=== PATIENT | female | born 1960 | race Caucasian/White ===

== ENCOUNTER 2019-07-13 10:32 | Day surgery (SDC) | payer BC, OTHER ==
[~2019-07-13 10:32] MED LIST: Betamethasone Acetate/Betamethasone Sod Phosphate 30 MG/5 ML MDV EPIDUR ONE; Iopamidol 200-M 10 ML vial ITHECAL ONE; Lidocaine 2% 5 ML SDV INJECT ONE; Ropivacaine 0.5% 5 MG/ML 30 ML SDV INJECT ONE
--- NOTE | 2019-07-13 19:17 | OR ---
SURGEON: Lisa Pickett D.O. DATE OF PROCEDURE: 07/13/2019 PRIMARY SURGEON: Lisa Pickett D.O. AEROPLANE PILOT: OR staff present: 1. Candie Silvestre RN. 2. Papo Thorne RN. 3. Jasmine Glover RT. WOUND CLASS: I. PREOPERATIVE DIAGNOSES: 1. L3-5, L5-S1 lumbar degenerative disk disease. 2. Lumbar disk protrusions and spinal stenosis with right lower extremity radiculopathy. PROCEDURE PERFORMED: 1. Right transforaminal epidural steroid injection at S1. 2. Fluoroscopic guidance for needle placement. 3. Local with oral Valium for sedation. SCREENING QUESTIONS: The patient answered "no" to all of the following questions: 1. Are you allergic to iodine, Betadine or latex? 2. Do you have a bleeding disorder? 3. Do you have any joint replacements, heart valve replacements, or a pacemaker? 4. Are you allergic to anti-inflammatories or blood thinners? 5. Do you have any current local or systemic infections? The patient's other symptoms to be treated include numbness, paresthesia, dysesthesia or hypoesthesia referred into the left lower extremity or any weakness in the involved myotome. This procedure is being performed in accordance with national guidelines as written by the [employer] (FELISHA). DESCRIPTION OF PROCEDURE: The patient had the procedure thoroughly explained including risks, benefits and alternatives. Consent was signed in my clinic indicating understanding and willingness to proceed. The patient presented to [facility] where the patient was escorted to the dressing room to disrobe and change into a hospital gown. Preoperative vital signs were taken and stable. The patient reported that Valium was taken prior to the procedure. The patient was brought to the procedure room and placed in the prone position on the table. A pillow was placed under the abdomen in order to flatten the lumbar lordosis. The back was prepped with ChloraPrep and sterilely draped. All personnel in the operating room were dressed in appropriate attire including surgical scrubs, head and shoe covers. This was to ensure sterility while in the treatment room. During the time fluoroscopy was in use, all personnel in the operating room wore lead nava with thyroid collars. Sterile technique was used during the procedure. The fluoroscope was placed for the S1 transforaminal epidural steroid injection. There was no sign of infection at the skin site for needle insertion. The skin was anesthetized with 2% lidocaine with a 27 gauge 1-1/2 inch needle. Then a 22 gauge 3-1/2 inch spinal needle, advanced to the S1. Under direct fluoroscopic guidance needle position was verified in three views; AP, oblique and lateral, with 0.2 cubic centimeters increments of Isovue-200 dye. No intravascular flow pattern was observed under live fluoroscopy. Then 12 milligrams of Celestone was slowly injected after negative aspiration of heme, cerebrospinal fluid and no paresthesias were noted. The needle was cleared prior to removal from the skin. No adverse reactions were noted. The patient was brought to the recovery room awake and in good condition by my staff. The patient was monitored and discharge instructions were given after a brief stay in the recovery area. Both oral and written discharge and follow up instructions were given. The patient will follow up in the clinic in 3-4 weeks post procedure to evaluate the efficacy. The patient verbalized understanding including understanding of those signs and symptoms that would require emergency care and knows how to contact the office if there are any problems or questions in the meantime. PREOPERATIVE PAIN: 5+/10. POSTOPERATIVE PAIN: 2/10. FOLLOWUP: Follow up in the Pain Clinic in 4 weeks. LEVI / CARMEN /[id number] NAKIA
== END 2019-07-13 13:20 | disposition home or self-care (01) ==
LOC: MW.SDS 10:32
PROVIDERS: ATTEND Anesthesiology
DX: M51.37 Other intervertebral disc degeneration, lumbosacral region (principal); M51.16 Intervertebral disc disorders with radiculopathy, lumbar region; M48.061 Spinal stenosis, lumbar region without neurogenic claudication
CPT/HCPCS: 64483; J0702; 62323

== ENCOUNTER 2019-10-10 10:40 | Emergency (ER) | payer BC, OTHER ==
[2019-10-10] MEDS ORDERED: diphenhydrAMINE 50 MG/ML SDV IVPUSH ONE (11:49)
[2019-10-10] MEDS ORDERED: Sodium Chloride 0.9% 1,000 ML IV SCH (12:00)
--- NOTE | 2019-10-10 12:02 | EDM.PDOC ---
ED [facility] GENERAL MEDICAL PROBLEM - General Chief Complaint: Chest Pain Stated Complaint: ITCHING/CHESTPAIN Time Seen by Provider: 10/10/19 11:59 Source of Information: Reports: Patient History Limitations: Reports: No Limitations - History of Present Illness INITIAL COMMENTS - FREE TEXT/NARRATIVE: Patient is a 58-year-old female with a past medical history of smoking as well as a recent back surgery approximately 2 weeks ago presenting with a chief complaint of chest pain. The patient's chest pain started on Wednesday while at rest. The chest pain is been intermittently occurring and not exacerbated by any particular thing. Chest pain is located substernal with radiation to bilateral chest into the back. Chest pain lasts about 5 to 10 minutes before resolving spontaneously. Patient has no prior history of chest pain. Patient has no history of DVT or PE. Patient denies any calf swelling or pain. Patient denies hemoptysis. Pmhx: None Pshx: None Family Hx: Both parents from an [place] before the age of 65 Smoking history? Yes, daily Etoh use? none Drug use? none In addition to that documented in the HPI above, the additional ROS was obtained : Constitutional: Denies fevers or chills Eyes: Denies vision changes ENMT: Denies sore throat CV: Per HPI Resp: Denies SOB GI: Denies vomiting or diarrhea : Denies painful urination MSK: Denies recent trauma Skin: Denies new rashes Neuro: Denies new numbness or tingling or weakness Endocrine: Denies unexpected weight loss Heme: Denies bleeding disorders I have reviewed the triage vital signs Const: Well nourished, well developed, appears stated age Eyes: PERRL, no conjunctival injection HENT: NCAT, Neck supple without meningismus CV: RRR, Warm, well-perfused extremities RESP: CTAB, Unlabored respiratory effort GI: soft, non-tender, non-distended, no masses MSK: No gross deformities appreciated Skin: Warm, dry. No rashes Neuro: Alert, ms sql server developer II-XII grossly intact. Sensation and motor function of extremities grossly intact. Psych: Appropriate mood and affect Assessment and plan: 58-year-old female with chief complaint of chest pain and itchiness. Patient's chest pain is low suspicion for acute coronary syndrome. Patient's EKG did not demonstrate any ischemic changes. Patient's initial troponin was negative and therefore heart score was given a 3. Patient also had CT angiogram done to rule out pulmonary embolism in the setting of recent surgery however this was negative. Patient feels well does not have any complaints at this time other than itchiness to the skin. Patient also has no evidence of acute allergic reaction and therefore will be discharged home with outpatient follow-up.. - Related Data Allergies Allergy/AdvReac Type Severity Reaction Status Date / Time bupropion HCl Allergy Unknown Hives Verified 06/04/14 06:39 [From Wellbutrin] latex Allergy Unknown Itching Verified 06/04/14 06:39 Latex, Natural Rubber Allergy Rash Verified 10/12/15 20:25 Home Meds: Home Meds Ibuprofen 200 mg PO ASDIRECTED PRN 05/31/14 [History] Hydrocodone/Acetaminophen [Hydrocodon-Acetaminoph 2.5-325] 10/10/19 [History] Pregabalin [Lyrica] 10/10/19 [History] Sertraline [Zoloft] 25 mg PO DAILY 10/10/19 [History] methocarbamoL [Robaxin] 10/10/19 [History] traZODone HCl [Trazodone HCl] 10/10/19 [History] Past Medical History HEENT History: Reports: Impaired Vision Other HEENT History: wears contacts Cardiovascular History: Reports: None Respiratory History: Reports: None Gastrointestinal History: Reports: Diverticulosis Other Gastrointestinal History: states hx of diverticulitis Genitourinary History: Reports: None 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 Requests pillow under knees for surgery Neurological History: Reports: Migraines Psychiatric History: Reports: Depression Endocrine/Metabolic History: Reports: Obesity/BMI 30+ Hematologic History: Reports: Other (See Below) Other Hematologic History: pt was told that she bled more than expected after Lap Laly and Hysterectomy. Became very bruised Immunologic History: Reports: None Oncologic (Cancer) History: Reports: None Dermatologic History: Reports: None - Infectious Disease History Infectious Disease History: Reports: Chicken Pox - Past Surgical History Head Surgeries/Procedures: Reports: None HEENT Surgical History: Reports: Naso-Sinus Surgery, Other (See Below) Cardiovascular Surgical History: Reports: None Respiratory Surgical History: Reports: None Female Surgical History: Reports: Section, Hysterectomy Neurological Surgical History: Reports: None Other Musculoskeletal Surgeries/Procedures:: L4-L5 surgery Social & Family History - Family History Family Medical History: Noncontributory - Tobacco Use Smoking Status *Q: Current Every Day Smoker Years of Tobacco use: 40 Packs/Tins Daily: 0.5 - Recreational Drug Use Recreational Drug Use: No ED ROS GENERAL - Review of Systems Review Of Systems: See Below ED EXAM, GENERAL - Physical Exam Exam: See Below Course - Vital Signs Last Recorded V/S: Last Vital Signs Temp 36.4 C 10/10/19 10:50 Pulse 70 10/10/19 13:11 Resp 18 10/10/19 13:11 BP 108/53 L 10/10/19 13:11 Pulse Ox 98 10/10/19 13:11 - Orders/Labs/Meds Orders: Active Orders 24 hr Category Date Time Status EKG 12 Lead [EKG Documentation Completion] [RC] STAT Care 10/10/19 10:50 Active Sodium Chloride 0.9% [Normal Saline] 1,000 ml Med 10/10/19 12:00 Active IV ASDIRECTED Medication Orders Sodium Chloride (Normal Saline) 1,000 mls @ 150 mls/hr IV ASDIRECTED JEROD Last Admin: 10/10/19 12:09 Dose: 150 mls/hr Labs: Laboratory Tests 10/10/19 10/10/19 Range/Units 11:55 11:55 WBC 7.73 (4.0-11.0) K/uL RBC 4.64 (4.30-5.90) M/uL Hgb 14.1 (12.0-16.0) g/dL Hct 42.0 (36.0-46.0) % MCV 90.5 (80.0-98.0) fL MCH 30.4 (27.0-32.0) pg MCHC 33.6 (31.0-37.0) g/dL RDW Std Deviation 49.8 (28.0-62.0) fl RDW Coeff of Sherrie 15 (11.0-15.0) % Plt Count 312 (150-400) K/uL MPV 9.90 (7.40-12.00) fL Neut % (Auto) 62.0 (48.0-80.0) % Lymph % (Auto) 26.9 (16.0-40.0) % Mcdonough % (Auto) 7.8 (0.0-15.0) % Eos % (Auto) 2.7 (0.0-7.0) % Baso % (Auto) 0.6 (0.0-1.5) % Neut # (Auto) 4.8 (1.4-5.7) K/uL Lymph # (Auto) 2.1 (0.6-2.4) K/uL Mcdonough # (Auto) 0.6 (0.0-0.8) K/uL Eos # (Auto) 0.2 (0.0-0.7) K/uL Baso # (Auto) 0.1 (0.0-0.1) K/uL Nucleated RBC % 0.0 /100WBC Nucleated RBCs # 0 K/uL Sodium 141 (136-145) mmol/L Potassium 4.3 (3.5-5.1) mmol/L Chloride 105 (98-107) mmol/L Carbon Dioxide 26.6 (21.0-32.0) mmol/L BUN 22 H (7.0-18.0) mg/dL Creatinine 0.9 (0.6-1.0) mg/dL Est Cr Clr Drug Dosing 72.94 mL/min Estimated GFR (MDRD) > 60.0 ml/min Glucose 88 (74-106) mg/dL Calcium 8.9 (8.5-10.1) mg/dL Total Bilirubin 0.3 (0.2-1.0) mg/dL AST 17 (15-37) IU/L ALT 30 (14-63) IU/L Alkaline Phosphatase 66 (46-116) U/L Troponin I < 0.050 (0.000-0.056) ng/mL Total Protein 7.2 (6.4-8.2) g/dL Albumin 3.7 (3.4-5.0) g/dL Globulin 3.5 (2.6-4.0) g/dL Albumin/Globulin Ratio 1.1 (0.9-1.6) Meds: Medications Generic Name Dose Route Start Last Admin Trade Name Freq PRN Reason Stop Dose Admin Sodium Chloride 1,000 mls @ 150 mls/hr 10/10/19 12:00 10/10/19 12:09 Normal Saline IV 150 mls/hr ASDIRECTED JEROD Administration Discontinued Medications Generic Name Dose Route Start Last Admin Trade Name Leanna PRN Reason Stop Dose Admin Diphenhydramine HCl 25 mg 10/10/19 11:49 10/10/19 12:11 Benadryl IVPUSH 10/10/19 11:50 25 mg ONETIME ONE Administration Iopamidol 50 ml 10/10/19 13:08 10/10/19 13:09 Isovue Multipack-370 (76%) IVPUSH 10/10/19 13:09 50 ml ONETIME ONE Administration Departure - Departure Time of Disposition: 13:57 Disposition: Home, Self-Care 01 Clinical Impression: Atypical chest pain Referrals: PCP,Unobtain [Primary Care Provider] - Forms: ED Department Discharge Additional Instructions: The following information is given to patients seen in the emergency department who are being discharged to home. This information is to outline your options for follow-up care. We provide all patients seen in our emergency department with a follow-up referral. The need for follow-up, as well as the timing and circumstances, are variable depending upon the specifics of your emergency department visit. If you don't have a primary care physician on staff, we will provide you with a referral. We always advise you to contact your personal physician following an emergency department visit to inform them of the circumstance of the visit and for follow-up with them and/or the need for any referrals to a consulting specialist. The emergency department will also refer you to a specialist when appropriate. This referral assures that you have the opportunity for follow-up care with a specialist. All of these measure are taken in an effort to provide you with optimal care, which includes your follow-up. Under all circumstances we always encourage you to contact your private physician who remains a resource for coordinating your care. When calling for follow-up care, please make the office aware that this follow-up is from your recent emergency room visit. If for any reason you are refused follow-up, please contact the [facility] Emergency Department at and asked to speak to the emergency department charge nurse. Sepsis Event Note - Evaluation Sepsis Screening Result: No Definite Risk - Focused Exam Vital Signs: Vital Signs Temp Pulse Resp BP Pulse Ox 10/10/19 13:11 70 18 108/53 L 98 10/10/19 12:15 78 18 122/66 98 10/10/19 10:50 36.4 C 115 H 24 H 142/85 H 100 Date Exam was Performed: 10/10/19 Time Exam was Performed: 13:56 - My Orders Last 24 Hours: My Active Orders 10/10/19 10:50 EKG 12 Lead [EKG Documentation Completion] [RC] STAT 10/10/19 12:00 Sodium Chloride 0.9% [Normal Saline] 1,000 ml IV ASDIRECTED - Assessment/Plan Last 24 Hours: My Active Orders 10/10/19 10:50 EKG 12 Lead [EKG Documentation Completion] [RC] STAT 10/10/19 12:00 Sodium Chloride 0.9% [Normal Saline] 1,000 ml IV ASDIRECTED
[2019-10-10 12:45] LABS: BLOOD UREA NITROGEN,BUN 22 mg/dL (7.0-18.0); CARBON DIOXIDE,CO2 26.6 mmol/L (21.0-32.0); CHLORIDE,CL 105 mmol/L (98-107); GLUCOSE RANDOM 88 mg/dL (74-106); POTASSIUM,K 4.3 mmol/L (3.5-5.1); SODIUM,NA 141 mmol/L (136-145)
[2019-10-10] MEDS ORDERED: Iopamidol 755 MG/ML 200 ML Multipack Bottle IVPUSH ONE (13:08)
--- NOTE | 2019-10-10 13:47 | CT ---
CT chest Technique: Multiple axial sections through the chest were obtained. Study performed as a pulmonary angiogram protocol. Intravenous contrast was therefore utilized. Findings: Pulmonary arteries are well-opacified. No filling defects are seen to indicate pulmonary embolism. Visualized upper abdominal structures shows no discrete abnormality. No pericardial thickening is seen. Minimal coronary artery calcification is noted. Aorta shows no aneurysm. Mediastinum shows no adenopathy. No axillary adenopathy is seen. Lungs are clear with no acute parenchymal change. No pleural effusions are noted. Bone window settings were reviewed which shows no acute osseous finding. Mild degenerative change scattered within the mid and lower thoracic spine. Impression: 1. No findings of pulmonary embolism. 2. Nothing acute is appreciated on CT study of the chest. Diagnostic code #1 This report was dictated in [place] Standard Time
[2019-10-10 14:10] VITALS: BP 113/63; PULSE 78
== END 2019-10-10 14:10 | disposition home or self-care (01) ==
LOC: MW.ED 10:40
DX: R07.89 Other chest pain (principal); F17.210 Nicotine dependence, cigarettes, uncomplicated; Z88.8 Allergy status to other drugs, medicaments and biological substances; Z91.040 Latex allergy status
CPT/HCPCS: 36415; 71275; 80053; 84484; 85025; 93005; 96361; 96374; 99285; J1200; J7030; Q9967; 99283